=== PATIENT | male | born 1940 | race Caucasian/White ===

== ENCOUNTER 2023-11-06 22:55 | Emergency (ER) | payer SELFPAY ==
[~2023-11-06] VITALS: Ht 162.6 cm; Wt 69.0 kg
[2023-11-06 23:07] VITALS: O2SAT 100
[2023-11-06 23:30] VITALS: TEMP 99.1
[2023-11-07] MEDS ORDERED: LISI10TA26 MT (00:17)
[2023-11-07 00:52] LABS: CARBON DIOXIDE 24 mEq/L (21-32); CHLORIDE 106 mEq/L (98-107); SODIUM 139 mEq/L (136-145)
[2023-11-07 00:53] LABS: CALCIUM 9.2 mg/dL (8.7-10.4)
[2023-11-07 00:58] LABS: CREATININE 0.9 mg/dL (0.6-1.3); GLUCOSE 97 mg/dL (70-105); UREA NITROGEN BLOOD 11 mg/dL (9-23)
[2023-11-07 00:59] LABS: ALANINE AMINOTRANSFERASE 25 IU/L (10-49); ALBUMIN 4.6 g/dL (3.2-4.8); ASPARTATE AMINOTRANSFERASE 26 IU/L (<34)
[2023-11-07 01:00] LABS: BILIRUBIN TOTAL 0.4 mg/dL (0.1-1.0)
[2023-11-07 01:40] VITALS: BP 132/83; PULSE 89; RESP 21
== END 2023-11-07 01:46 | disposition home or self-care (01) ==
LOC: ER 22:55
DX: I10 Essential (primary) hypertension (principal)
CPT/HCPCS: 36415; 80053; 93005; 99284

== ENCOUNTER 2024-12-12 14:38 | Emergency (ER) | payer MEDICAID ==
[~2024-12-12] VITALS: Ht 160 cm; Wt 59.0 kg
[~2024-12-12 14:38] MED LIST: LISI10TA26 MT
[2024-12-12 15:01] VITALS: TEMP 36.8; O2SAT 97
[2024-12-12 18:29] LABS: CLARITY URINE CLEAR (CLEAR); COLOR URINE YELLOW (YELLOW); GLUCOSE URINE NEGATIVE (NEGATIVE); KETONES URINE NEGATIVE (NEGATIVE); LEUKOCYTE ESTERASE URINE NEGATIVE (NEGATIVE); NITRITE URINE NEGATIVE (NEGATIVE); OCCULT BLOOD URINE TRACE (NEGATIVE); PH URINE 6.5 (4.5-8.0); PROTEIN URINE NEGATIVE (NEGATIVE); SPECIFIC GRAVITY URINE 1.011 (1.005-1.030); UROBILINOGEN URINE 0.2 E.U./dL (0.2-1.0)
[2024-12-12] MEDS ORDERED: CEPH500C2 MT (18:41)
[2024-12-12 18:46] LABS: BACTERIA URINE TRACE; SQUAMOUS EPITHELIAL CELL URINE RARE /lpf (RARE/1+)
[2024-12-12 18:47] LABS: RBC URINE 0-2 /hpf (0-2); WBC URINE 0-2 /hpf (0-2)
[2024-12-12 19:01] VITALS: BP 109/66; PULSE 55; RESP 16; O2SAT 100
== END 2024-12-12 19:06 | disposition home or self-care (01) ==
LOC: ER 14:38
DX: N39.0 Urinary tract infection, site not specified (principal)
CPT/HCPCS: 81003; 99283